=== PATIENT | female | born 1980 | race Asian ===

== ENCOUNTER → 2024-04-26 09:02 | Outpatient (REF) | payer OTHER, SELFPAY | LOC: WDC 09:02 | PROVIDERS: ATTENDING PHYSICIAN Physician Assistant Medical | DX: Z12.31 Encounter for screening mammogram for malignant neoplasm of breast (principal) | CPT/HCPCS: 77063; 77067 ==

== ENCOUNTER → 2025-05-02 09:51 | Outpatient (REF) | payer BC, SELFPAY | LOC: WDC 09:51 | PROVIDERS: ATTENDING PHYSICIAN Family Medicine | DX: Z12.31 Encounter for screening mammogram for malignant neoplasm of breast (principal) | CPT/HCPCS: 77063; 77067 ==